=== PATIENT | female | born 1995 | race American Indian/Alaskan Native ===

== ENCOUNTER 2017-09-20 07:46 | Outpatient (CLI) | payer BC ==
--- NOTE | 2017-09-20 09:32 | Ultrasound Report ---
ULTRASOUND ABDOMEN COMPLETE: TECHNIQUE: Transabdominal ultrasound with color Doppler interrogation. HISTORY: Right upper quadrant abdominal pain. COMPARISON: none. FINDINGS: LIVER: Normal. BILIARY SYSTEM: Normal. PANCREAS: Normal. SPLEEN: Normal. KIDNEYS: Normal. AORTA/IVC: Normal. ASCITES: None. IMPRESSION: Unremarkable exam.
== END 2017-09-20 07:47 | disposition home or self-care (01) ==
LOC: US 07:46
PROVIDERS: ATTEND Pediatrics
DX: R10.11 Right upper quadrant pain (principal)
CPT/HCPCS: 76700